=== PATIENT | female | born 1950 | race African-American/Black ===

== ENCOUNTER 2020-01-29 12:48 | Inpatient (IN) | payer MEDICARE, OTHER ==
[~2020-01-29] VITALS: Ht 157.5 cm; Wt 62.1 kg
--- NOTE | 2020-01-29 12:51 | NUR ---
Pt is medically cleared by DR Alexander. Addendum: 01/29/20 at 1311 by YOLA trnasfer pending on u bed being available.
--- NOTE | 2020-01-29 13:27 | NUR ---
[facility] provided for pt. pt eating with good apetite.
--- NOTE | 2020-01-29 15:00 | NUR ---
pt ambulated to bathroom with assisstance.
--- NOTE | 2020-01-29 16:06 | NUR ---
pt transfered to mhu in stable condition.
[2020-01-29] MEDS ORDERED: MAGNESIUM HYDROXIDE 30 ML LIQUID UDC PO PRN (17:45)
[2020-01-29] MEDS ORDERED: LORAZEPAM 0.5 MG TABLET PO PRN (17:45)
[2020-01-29] MEDS ORDERED: TEMAZEPAM 7.5 MG CAPSULE PO PRN (17:45)
[2020-01-29] MEDS ORDERED: MAG HYDROX/AL HYDROX/SIMETH 30 ML LIQUID UDC PO PRN (17:45)
--- NOTE | 2020-01-29 19:00 | NUR ---
PATIENT ALERT ORIENTED, NO BEHAVIORAL PATIENT NOTED AT THIS TIME. PATIENT UP AMBULATE TO HALLWAYS, AND HER ROOM.
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
[2020-01-29 20:00] VITALS: BP 180/92
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
[2020-01-29] MEDS ORDERED: OLANZAPINE 10 MG VIAL IM ONE (22:15)
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
--- NOTE | 2020-01-29 23:22 | NUR ---
PATIENT AGITATION AND HOSTILE BEHAVIOR SUBSIDED, PATIENT STAYED ON HER ROOM QUIET AND WENT TO SLEEP. MEDICATION ZYPREXA IM MEDICATION HAS NO ADVERSE REACTION NOTED. CONT TO MONITOR.
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
[2020-01-30 08:00] VITALS: BP 145/82
[2020-01-30 08:46] LABS: BILIRUBIN,TOTAL 0.4 mg/dL (0.2-1.0); CREATININE 0.8 mg/dL (0.6-1.3); TOTAL PROTEIN, SERUM 7.1 g/dL (6.4-8.2)
[2020-01-30] MEDS: ACETAMINOPHEN 325 MG TABLET PO PRN (09:25)
--- NOTE | 2020-01-30 12:28 | NUR ---
Social Work Family Contact: Mold Breaker called and left a voicemail for patient's son Alphonse Dang ([phone]) to collect collateral information. Awaiting a return call, will attempt again.
--- NOTE | 2020-01-30 12:28 | NUR ---
Social Work Initial Discharge Plan: Patient resides at home [id number] [place] [address]. [place] [address] ([phone]) with her son Alphonse Dang ([phone]). Patient would like to return home upon discharge. SW will continue to work with patient, family and MD to ensure a safe and proper discharge plan.
--- NOTE | 2020-01-30 13:34 | NUR ---
Social Work Firearms Report (DOJ): Store Hand completed and submitted a [employer] firearms report for 5150 danger to others certification. A copy of report has been placed in patient chart.
[2020-01-30 16:00] VITALS: BP 108/78
--- NOTE | 2020-01-30 17:29 | NUR ---
Received patient this am awake , alert and calm. VS stable and no behavioral issues noted at that tome. As the day progressed patients behavior is becoming more irritable and paranoid. Patient stated that Dr. Cruz " is making her look like a fucking nut". and asking " I never said or did the things that the paper said I did. Its a lie." Patient claims there is no reason for her to be in here. Monitoring closely for behavior escalation and providing a calm and quiet environment. Medicate if needed.
[2020-01-30 20:00] VITALS: BP 122/75
[2020-01-30] MEDS ORDERED: OLANZAPINE 2.5 MG TABLET PO PRN (20:00)
--- NOTE | 2020-01-30 21:00 | NUR ---
PATIENT ALERT, ISOLATE HERSELF STAYED ON BED. PATIENT COOPERATIVE WITH MEDICATION, TAKE NIGHT MEDICATION, NO BEHAVIORAL PROBLEM NOTED AT THIS TIME. CONT TO MONITOR.
[2020-01-30] MEDS: OLANZAPINE 2.5 MG TABLET PO SCH (22:34)
--- NOTE | 2020-01-31 05:56 | NUR ---
PATIENT SLEPT MOST OF THE NIGHT, NO COMPLAIN OF PAIN. PATIENT COOPERATIVE WITH CARE, CONT TO MONITOR.
[2020-01-31 07:30] VITALS: BP 141/93
[2020-01-31] MEDS: ASPIRIN 81 MG TAB.CHEW PO SCH (08:27)
[2020-01-31 16:00] VITALS: BP 144/90
[2020-01-31 20:00] VITALS: BP 151/90
[2020-01-31] MEDS: OLANZAPINE 2.5 MG TABLET PO SCH (20:02)
[2020-02-01 07:30] VITALS: BP 125/87
[2020-02-01] MEDS: ASPIRIN 81 MG TAB.CHEW PO SCH (10:07)
[2020-02-01 16:00] VITALS: BP 147/82
[2020-02-01] MEDS: ACETAMINOPHEN 325 MG TABLET PO PRN (16:52)
--- NOTE | 2020-02-01 16:59 | NUR ---
Gps/Brass Finisher Tend to be isolative, making her needs known to staff, complained of toothache, tylenol 650 mg po administered. as requested.
[2020-02-01] MEDS: OLANZAPINE 2.5 MG TABLET PO SCH (20:12)
[2020-02-01 20:16] VITALS: BP 153/78
--- NOTE | 2020-02-01 23:43 | NUR ---
Social Work Individual Therapy Note: Oracle Forms Developer met with patient today to provide brief individual supportive counseling. SW addressed patient's history of chemical dependency. Patient states that she smokes marijuana and drinks alcohol daily. SW explored with patient the emotional and physical effects of the substances use on the patient's health. Patient stated, "I know it's not healthy or good, but when I don't have anything else to rely on that's what I do". Patient seemed hesitant to discuss the topic much further. Patient presents with depressed mood and flat affect. SW will provide patient with resources upon discharge. Oracle Forms Developer will remain available to patient and continue to provide supportive counseling as possible and needed.
[2020-02-02] MEDS: ASPIRIN 81 MG TAB.CHEW PO SCH (09:19)
[2020-02-02 15:15] VITALS: BP 127/79
--- NOTE | 2020-02-02 17:00 | NUR ---
Gps/Label Printing Machinist- Deneis any pain no discomfort noted at this time, encouraged to go to activity room and participates in her group tx., tends to close her door, discouraged from doing so, isolative..
[2020-02-02] MEDS: OLANZAPINE 2.5 MG TABLET PO SCH (20:03)
[2020-02-02 20:08] VITALS: BP 132/89
[2020-02-03 07:30] VITALS: BP 113/83
[2020-02-03] MEDS: ASPIRIN 81 MG TAB.CHEW PO SCH (08:42)
[2020-02-03 16:00] VITALS: BP 119/84
[2020-02-03] MEDS: ACETAMINOPHEN 325 MG TABLET PO PRN (20:22)
[2020-02-03 20:41] VITALS: BP 141/89
[2020-02-03] MEDS: OLANZAPINE 2.5 MG TABLET PO SCH (21:00)
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
--- NOTE | 2020-02-04 06:51 | NUR ---
Pt refused zyprexa last night. Stating she took zyprexa in am. c/o toothache, given tylenol. Slept 4.45 hrs.
[2020-02-04 07:30] VITALS: BP 123/74
[2020-02-04] MEDS: ASPIRIN 81 MG TAB.CHEW PO SCH (08:43)
[2020-02-04 16:00] VITALS: BP 136/83
[2020-02-04] MEDS: OLANZAPINE 2.5 MG TABLET PO SCH ×2 (17:40→20:24)
[2020-02-04 20:00] VITALS: BP 141/88
[2020-02-05 07:30] VITALS: BP 139/76
[2020-02-05] MEDS: ASPIRIN 81 MG TAB.CHEW PO SCH (08:55)
[2020-02-05] MEDS: OLANZAPINE 2.5 MG TABLET PO SCH ×2 (08:55→20:03)
[2020-02-05 15:30] VITALS: BP 106/71
[2020-02-05] MEDS: ACETAMINOPHEN 325 MG TABLET PO PRN (15:39)
--- NOTE | 2020-02-05 15:39 | NUR ---
Social Work Substance Abuse Intervention: Patient was provided with a brief substance abuse intervention and provided with the [facility] Substance Abuse Self-helpline (SAS) ([phone]), [facility] [address] [place] [address] ([phone]), [address] [place] [address] ([phone]).
[2020-02-05 20:00] VITALS: BP 136/74
[2020-02-06 07:58] VITALS: BP 132/78
[2020-02-06] MEDS: ASPIRIN 81 MG TAB.CHEW PO SCH (08:16)
[2020-02-06] MEDS: OLANZAPINE 2.5 MG TABLET PO SCH (08:17)
--- NOTE | 2020-02-06 08:32 | NUR ---
Social Work Discharge Note: Patient will be discharged to [facility] [address] [place] [id number] ([phone]) today. Patient will be provided with ambulance transportation at 11:00am. Char Belt Operator [facility] relations coordinator at [facility] ([phone]), who stated patient will be accepted to the facility today. Patient is alert and oriented x3-4 and is unable to plan for self-care, however, is willing to accept care at the facility. Patient denies any suicidal or homicidal ideation. Patient is aware and agreeable with discharge plans. Patient presents with calm mood and euthymic affect. Patient will continue to follow-up with Psychiatrist Dr. Cruz and Pipe Finisher Dr. Cooley at the facility. Patients son Alphonse Dang ([phone]) is made aware and is agreeable with discharge plans.
--- NOTE | 2020-02-06 14:15 | NUR ---
GPS: Nursing Notes: Discharge Notes: Patient is awake and responding to her name, cooperative with nursing care, compliant with her medications, following staff directions, denies any SI/HI, denies any AH/VH, denies any pain or discomfort, denies any SOB, [place] [facility] [place] [address] [place] [address] . took all her belongings and valuables with her, report given to Ruba RN supervisor evaporator, transported via ambulance to facility. Patient will continue to follow-up with Psychiatrist Dr. Cruz and Analytical Data Scientist Dr. Cooley at the facility for aftercare. Patients son Alphonse Dang ([phone]) is made aware and is agreeable with discharge plans.
== END 2020-02-06 14:15 | DRG 885 ==
LOC: ER 12:48 → GPS 15:43
PROVIDERS: ADMIT Psychiatry & Neurology Psychosomatic Medicine; ATTEND Internal Medicine
DX: F20.9 Schizophrenia, unspecified (principal); F41.9 Anxiety disorder, unspecified; F10.10 Alcohol abuse, uncomplicated; Y90.9 Presence of alcohol in blood, level not specified; I10 Essential (primary) hypertension; F03.90 Unspecified dementia, unspecified severity, without behavioral disturbance, psychotic disturbance, mood disturbance, and anxiety; M54.30 Sciatica, unspecified side; F12.10 Cannabis abuse, uncomplicated; F32.9 Major depressive disorder, single episode, unspecified; Z79.82 Long term (current) use of aspirin
CPT/HCPCS: 36415; A4663; J2358